=== PATIENT | female | born 1995 | race African-American/Black ===

== ENCOUNTER 2017-10-01 20:26 | Emergency (ER) | payer SELFPAY ==
[~2017-10-01] VITALS: Ht 160 cm; Wt 72.6 kg
[~2017-10-01 20:26] MED LIST: AMOX500C PO; PRED20TA PO
[2017-10-01 21:03] LABS: BILIRUBIN,URINE NEGATIVE (NEG); GLUCOSE,URINE NEGATIVE (NEG); NITRITE,URINE NEGATIVE (NEG); PROTEIN,URINE NEGATIVE (NEG-TRACE)
[2017-10-01 21:12] LABS: BACTERIA,URINE MODERATE /HPF (0-FEW); RBC,URINE RARE /HPF (0-2); SQUAMOUS EPITHELIAL CELL,UR MANY /LPF; WBC,URINE RARE /HPF (0-4)
[2017-10-01] MEDS ORDERED: ORPH100T PO (21:52)
[2017-10-01] MEDS ORDERED: NAPR-683 PO (21:52)
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
[2017-10-01 21:55] VITALS: BP 118/69
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
== END 2017-10-01 22:08 | disposition home or self-care (01) ==
LOC: ER 20:26
DX: S16.1XXA Strain of muscle, fascia and tendon at neck level, initial encounter (principal); S39.012A Strain of muscle, fascia and tendon of lower back, initial encounter; J45.909 Unspecified asthma, uncomplicated; V43.52XA Car driver injured in collision with other type car in traffic accident, initial encounter; Y93.I9 Activity, other involving external motion; Y92.481 Parking lot as the place of occurrence of the external cause; Y99.8 Other external cause status
CPT/HCPCS: 72040; 81001; 81025; 87086; 99285